=== PATIENT | female | born 1980 | race Caucasian/White ===

== ENCOUNTER 2021-09-23 11:20 | Emergency (ER) | payer OTHER, SELFPAY ==
--- NOTE | ~2021-09-23 | US_ITS ---
EXAMINATION: US OB <=14 wk fetus w TV DATE: 09/23/2021 13:05 INDICATION: Bleeding in . TECHNIQUE: Real-time transabdominal and transvaginal pelvic ultrasound was performed. COMPARISON: None. FINDINGS: TRANSABDOMINAL ULTRASOUND: The uterus measures 8.1 x 4.7 x 5.0 cm. TRANSVAGINAL ULTRASOUND: There is an intrauterine gestational sac. A yolk sac is identified. The fet al crown rump length measures 5 mm, which correlates with an estimated gestational age of 6 weeks and 1 day(s) (+/-) 4 day(s). heart motion is not identified by M-mode Doppler, which may be normal at this size. The right ovary is not visualized. There is a 5.4 cm cyst in left adnexa. There is phy siologic free fluid in the pelvis. IMPRESSION: 1. Single intrauterine gestation with estimated date of delivery of 05/18/2022. 2. 5.4 cm cyst in left adnexa, likely benign. Pelvis ultrasound is recommended in one year. Reviewed, dictated and finalized at location A.
[2021-09-23 11:23] VITALS: BP 129/80; PULSE 84; RESP 14; TEMP 36.9; O2SAT 100
--- NOTE | 2021-09-23 12:37 | ED.GENADULT ---
HPI - General Adult General Chief complaint: [employer] Stated complaint: BLEEDING Time Seen by Provider: 09/23/21 12:02 Source: RN notes reviewed History of Present Illness HPI narrative: Patient presents emergency department from home for vaginal spotting. Patient states that she just found out she is the beginning of September she is G5, P3 currently visiting from [place] and is here till the end of the month. The patient began to have some vaginal spotting 2 days ago with intermittent lower abdominal cramping. She denies any cramping at this time. Patient denies any fevers or chills chest pain or shortness of breath Related Data Allergies Allergy/AdvReac Type Severity Reaction Status Date / Time No Known Allergies Allergy Verified 09/23/21 11:45 Review of Systems Review of Systems: Gen.: Denies fevers or chills ENT: Denies congestion Respiratory: Denies shortness of breath or cough CV: Denies chest pain or palpitations GI: Reports intermittent lower abdominal cramping. Denies nausea, emesis or diarrhea see HPI Musculoskeletal: Denies back pain or muscle pain Neuro: Denies numbness, tingling, weakness or focal weakness Skin: Denies rash Except as documented, all other systems reviewed and negative PMFSH Past Medical History Medical History (Updated 09/23/21 @ 16:04 by Sharad Mohan DO) Patient denies significant medical history Social History Social History (Updated 09/23/21 @ 12:39 by Sharad Mohan DO) Smoking status: Never smoker Exam Narrative: APPEARANCE: No acute distress, nontoxic, resting in bed EYES: EOMI HEENT: Normocephalic, atraumatic, OMM RESPIRATORY: No respiratory distress Clear to auscultation bilaterally with no rhonchi wheezing or rales. CARDIOVASCULAR: Regular rate and rhythm without murmurs rubs or gallops. ABDOMINAL: Soft, nontender, nondistended, no rebound or guarding : Normal external exam, small mount of dark vaginal blood with no clots in vaginal canal cervix is closed MUSCULOSKELETAl: Moves all extremities. No clubbing, cyanosis or edema. NEURO: Awake and alert. Following commands, speech normal, no focal deficits SKIN:: Warm, dry. No rashes lesions or abrasions PSYCHIATRIC: Normal affect/mood, Course Course Emergency Course: Discussed with Dr. Deleon presentation and work-up agrees with plan for discharge at this time she request patient have a repeat beta-hCG blood test on 09/25/2021 and request the patient follow-up in the office Thursday for further evaluation repeat Discussed with patient results of workup and diagnosis. Discussed need for follow-up with primary care, proper use of medication, and reasons to return to the emergency department. Patient understands and agrees to current treatment plan Vital Signs Vital signs: Vital Signs Temperature 98.4 F 09/23/21 11:23 Pulse Rate 84 09/23/21 11:23 Respiratory Rate 14 09/23/21 11:23 Blood Pressure 129/80 09/23/21 11:23 Pulse Oximetry 100 09/23/21 11:23 Oxygen Delivery Room Air 09/23/21 11:23 Temperature 98.4 F 09/23/21 11:23 Pulse Rate 84 09/23/21 11:23 Respiratory Rate 14 09/23/21 11:23 Blood Pressure 129/80 09/23/21 11:23 Pulse Oximetry 100 09/23/21 11:23 Oxygen Delivery Room Air 09/23/21 11:23 Medical Decision Making Vital Signs Vital Signs: Vital Signs Temperature 98.4 F 09/23/21 11:23 Pulse Rate 84 09/23/21 11:23 Respiratory Rate 14 09/23/21 11:23 Blood Pressure 129/80 09/23/21 11:23 Pulse Oximetry 100 09/23/21 11:23 Oxygen Delivery Room Air 09/23/21 11:23 Temperature 98.4 F 09/23/21 11:23 Pulse Rate 84 09/23/21 11:23 Respiratory Rate 14 09/23/21 11:23 Blood Pressure 129/80 09/23/21 11:23 Pulse Oximetry 100 09/23/21 11:23 Oxygen Delivery Room Air 09/23/21 11:23 Lab Data Result diagrams: 09/23/21 12:29 09/23/21 12:29 Labs: Lab Results 09/23/21 09/23/2109/13
[2021-09-23 12:54] LABS: Basophils Percent Auto 0.5 % (0.2-1.2); Eosinophils Absolute Auto 0.2 K/mm3 (0-0.3); Eosinophils Percent Auto 2.6 % (0-4.4); Hematocrit 40.3 % (37.0-47.0); Immature Granulocyte Absolute 0.02 K/mm3 (0.00-0.031); Immature Granulocyte Percent A 0.3 % (0-0.5); Lymphocytes Percent Auto 20.5 % (18.3-44.2); Mean Corpuscular HGB Conc 32.3 g/dl (32-36); Mean Corpuscular Volume 93.1 fl (80-100); Mean Platelet Volume 10.2 fl (7.4-10.4); Monocytes Absolute Auto 0.5 K/mm3 (0.1-0.6); Monocytes Percent Auto 7.1 % (2.6-8.5); Platelet Count Result 256 k/mm3 (150-375); Red Blood Count 4.33 M/mm3 (4.2-5.4); Red Cell Distribution Width 12.5 % (11.5-14.5); White Blood Count 7.3 K/mm3 (4.5-10.0)
[2021-09-23 13:04] LABS: Alanine Aminotransferase 18 U/L (6-35); Alkaline Phosphatase 74 U/L (38-126); Anion Gap 10 mmol/L (8-16); Aspartate Amino Transferase 22 U/L (14-36); Bilirubin,Total 0.7 mg/dL (0.2-1.3); Blood Urea Nitrogen 12 mg/dL (7-17); Calcium 9.1 mg/dL (8.4-10.2); Carbon Dioxide 22 mmol/L (22-30); Chloride 108 mmol/L (98-107); Estimated Glomerular Filt Rate > 60; Glucose 100 mg/dL (65-110); Potassium 3.9 mmol/L (3.4-5.0); Sodium 140 mmol/L (137-145)
[2021-09-23 14:22] LABS: Appearance Urine Clear (Clear); Bilirubin Urine Negative (Negative); Blood Urine 3+ (Negative); Color Urine Yellow (Yellow); Glucose Urine UA Negative (Negative); Ketones Urine Negative (Negative); Leukocyte Esterase Ur 1+ LEU/UL (Negative); Nitrate Urine Negative (Negative); Protein Urine Trace mg/dL (Negative); Specific Grav Ur 1.015 (1.001-1.035)
[2021-09-23 14:31] LABS: Mucus Urine Rare /lpf; RBC Urine >75 /hpf (0-2); Squamous Epithelial Cell Urine Many /hpf (Few); WBC Urine 31-50 /hpf
[2021-09-23 14:34] LABS: Add Urine Microscopic? YES
[2021-09-23] MEDS: CEPHALEXIN 500 MG CAPSULE PO (15:48)
--- NOTE | 2021-09-23 16:39 | PCCCNOTE ---
CC was consulted to meet with patient for financial assistance in getting the outpatient ultrasound scheduled. patient was instructed to go to main entrance of hospital, registration, and meet with them so that the outpatient ultrasound could be scheduled for Wednesday 09/27. patient, spouse and mother n law also at bedside. CC will continue to meet with patient if neede/d
== END 2021-09-23 16:10 | disposition home or self-care (01) ==
PROVIDERS: Emergency Provider Emergency Medicine
DX: O20.0 Threatened abortion (principal); O34.81 Maternal care for other abnormalities of pelvic organs, first trimester; N83.202 Unspecified ovarian cyst, left side; O23.41 Unspecified infection of urinary tract in pregnancy, first trimester; Z3A.01 Less than 8 weeks gestation of pregnancy
CPT/HCPCS: 36415; 76801; 76817; 80053; 81001; 84702; 85025; 85461; 87086; 99284; A9270

== ENCOUNTER 2021-09-25 10:50 | Outpatient (CLI) | payer OTHER, SELFPAY | END 2021-09-25 10:51 | disposition home or self-care (01) | PROVIDERS: Visit Provider Obstetrics & Gynecology Gynecology | DX: O20.0 Threatened abortion (principal) | CPT/HCPCS: 36415; 84702 ==